=== PATIENT | male | born 1940 | race Caucasian/White ===

== ENCOUNTER 2016-12-27 06:46 | Inpatient (IN) | payer MEDICARE, BC, MEDICAID ==
[~2016-12-27] VITALS: Ht 167.6 cm; Wt 108.1 kg
[~2016-12-27 06:46] MED LIST: ADULT LOW DOSE81 MG PO; AMITRIPTYLINE100 M1 PO; AMITRIPTYLINE100 MG; CEFAZOLIN IR; CRANBERRY250 MG PO; DIAZEPAM10 MG PO; DULCOLAX 1010 MG/SUP PR; FUROSEMIDE 20MG20 MG PO; KEFLEX 500MG.500 MG PO; LASIX 20MG. TAB20 MG PO; LEADER CRANBERR1 TAB PO; LIPITOR40 M1 PO; SINGULAIR 10 MG10 MG PO; SINGULAIR10 MG PO; VALIUM 10MG TAB10 MG PO; [UNRECOGNIZED DRUG - OTHER] IL
[2016-12-27 06:55] VITALS: BP 72/39
--- NOTE | 2016-12-27 07:07 | Emergency Room Report ---
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 N Clinical Suspician of Infection? N Mental Status: 1 - Regular (Normal Baseline) Sepsis Risk:Low Sepsis Risk Have you (or family members/close friends) recently traveled outside the [place]? N If Yes, where/when: Have you had exposure to infectious disease within the past month? N TB? Other? Specify: Source patient, RN notes reviewed, family, EMS, old records Exam Limitations no limitations Comment pt with chest tightness this am and torres with no vomiting - no cough or known fever Cardiac Chest Pain Chest pain indicative of cardiac No Timing/Duration this evening Severity moderate ALLERGIES Coded Allergies: baclofen (12/18/16) carbamazepine (12/18/16) ciprofloxacin (GI UPSET 12/18/16) nitrofurantoin (From MACROBID) (12/18/16) oxybutynin (12/18/16) prazosin (12/18/16) Uncoded Allergies: BEE STINGS (SWELLING 08/05/14) BEES WAX (SWELLING 08/05/14) Home Medications Active Scripts Aspirin (Adult Low Dose Aspirin EC) 81 MG PO DAILY #30 TAB Prov: 12/13/16 Reported Medications AMITRIPTYLINE HCL (Amitriptyline Hcl) 100 MG PO QHS #30 TAB Montelukast Sodium (Singulair) 10 MG PO QAM Diazepam (Valium 10MG) 10 MG PO QID Bisacodyl (Dulcolax 10MG Supp) 10 MG [place] Q48H CRANBERRY CONC/C/BACILL COAG (Cranberry Tablet) 1 TAB PO BID Furosemide (Furosemide) 20 MG PO DAILY PRN DIURETIC #30 NEOMYCIN LUCIA/POLYMYX B SULF (Neomy-Polymyxin B 40 MG/Ml Amp) 1 ML [place] History Medical History General CAD? No Angina: No MD: No Hypertension? No Hyperlipidemia? Yes CHF? No DVT? No PE? No COPD? No Asthma? No Anemia? No GERD? No Gastric ulcers? No GI Bleed? No Hernia? No Thyroid Problems? No Hypothyroidism? No CVA? No Seizures? No Diabetes? No Renal Insuffiency? No End Stage Renal Disease? No UTI? Yes Stones? Yes BPH? No GB Disease: No Nephritic Syndrome? No Asplenia? No Hepatitis? No Arthritis? No Migraines? No Cataracts? No Glaucoma? No MRSA? No HIV? No TB? No Anxiety? No Depression? No Cancer? No Site: N More? Yes Additional hx: SPINAL CORD INJURY-QUADRAPALEGICN CHRONIC INDWELLING SIEGEL Immunization Hx DT/Tetanus > 10 Years Ago Flu Refused Pneumonia Refuses Surgical Hx Previous Surgery?Y NECK FUSION IN 1977 SHUN HIP FX'S NO SURGERY Family History Family Hx Diabetes Yes CAD No Hypertension Yes Hyperlipidemia Yes Cancer Yes TB No Social History Smoking Hx Smoker: Former Smoker Tobacco: No Type Cigarettes Packs/day N/A Alcohol Alcohol: No Drugs none Review of Systems All Other Systems Reviewed and Negative Constitutional denies fever Eyes denies drainage ENT denies: ear pain, epistaxis, throat pain. Respiratory denies cough, denies shortness of breath Cardiovascular chest pain, denies palpitations, denies syncope Gastrointestinal denies abdominal pain, denies diarrhea, denies vomiting Genitourinary denies: dysuria, frequency, hesitancy, hematuria. Musculoskeletal denies back pain, denies joint pain, denies neck pain Skin denies rash Psychiatric/Neurological denies headache, denies seizure Physical Exam Vital Signs Vital Signs Date Time Temp Pulse Resp B/P Pulse O2 O2 Flow FiO2 Ox Delivery Rate 12/27 0821 63 18 98/70 95 12/27 0756 61 18 90/58 95 12/27 0711 68 18 126/78 95 12/27 0655 95.8 68 18 72/39 95 - WBC >12,000 or <4,000 or 10% bands? 2 or more SIRS Criteria Met? B/P:98/70 MAP:50 Creatinine >2.0? UA output<0.5ml/kg/hr for 2 hrs? Platelet count >100,000? Lactate >2.0mmol/1? INR >1.2 or PTT > than 60 sec? Evidence of Organ Dysfunction? Provider documented clinical suspician of infection? N Sepsis Criteria Count: 2 Sepsis Risk: Low Sepsis Risk General Appearance no apparent distress Eye Exam - bilateral eye PERRL, bilateral eye EOMI Ear, Nose, Throat normal ENT inspection Neck non-tender Respiratory Status No: respiratory distress. Lung Sounds bilateral: decreased breath sounds. 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 No Results/Orders Laboratory Tests 12/27/16 0720: Lactic Acid 1.1 12/27/16 0720: Sodium 135 L, Potassium 3.3 L, Chloride 97 L, Carbon Dioxide 32, BUN 22 H, Creatinine 0.7 L, Estimated Creat Clear 138, Estimated GFR (MDRD) 110, Glucose 83, Calcium 8.6, Total Bilirubin 0.9, AST 14 L, ALT 42, Alkaline Phosphatase 79 , Creatine Kinase 47, CK-MB (CK-2) Rel Index 6.0 H, CK and CKMB Interp 2.8, Troponin I 0.04, Total Protein 6.1 L, Albumin 3.0 L, Globulin 3.1, Albumin/ Globulin Ratio 1.0 L, WBC 23.6 *H, RBC 4.41 L, Hgb 12.1 L, Hct 37.1 L, MCV 84.2, RDW 16.3, Plt Count 179, MPV 6.8 L, Gran % 93.0 H, Gran # 22.0 H, Total Counted 100, Lymphocytes % 2.2 L, Monocytes % 4.7, Eosinophils % 0.1, Basophils % 0.1, Neutrophils 86 H, Band Neutrophils 4, Lymphocytes (Manual) 6 L, Lymphocytes # 0.5 L, Monocytes (Manual) 3, Monocytes # 1.1 H, Eosinophils # 0.0, Eosinophils # (Manual) 1, Basophils # 0.0, Platelet Estimate NORMAL, PUBS MCHC 32.6, MCH 27.5 12/27/16 0711: Urine Color KOSTAS, Urine Appearance CLOUDY, Urine pH 6.5, Ur Specific [place] 1.010, Urine Protein 2+ H, Urine Ketones NEGATIVE, Urine Blood 3+ H, Urine Nitrate POSITIVE H, Urine Bilirubin NEGATIVE, Urine Urobilinogen 1.0, Ur Leukocyte Esterase 3+ H, Urine RBC TNTC, Urine WBC TNTC, Ur Squamous Epith Cells 3-5, Urine Renal Cells 3-5, Urine Bacteria 4+, Urine Mucus 1+, Urine Glucose NEGATIVE Current Medication Orders Sig/Jemma Start time Last Medication Dose Route Stop Time Status Admin Aspirin 324 MG ONCE ONE 12/27 0730 DC 12/27 PO 12/27 0731 0733 Aspirin 0 .STK-MED ONE 12/27 0729 DC .ROUTE Sodium Chloride 10 ML PRN PRN 12/27 0700 AC IV 12/28 0652 Sodium Chloride 1,000 ML .Q1H1M 12/27 07 DC 12/27 IV 12/27 08 0714 Sodium Chloride 10 ML PRN PRN 12/27 0700 AC IV 12/28 0654 Sodium Chloride 1,000 ML .STK-MED ONE 12/27 0654 DC IV Orders Procedure Date/time Status Decision to admit 12/27 0825 Active DIFFERENTIAL-WBC 12/27 0720 Complete OXYGEN REQUEST 12/27 0719 Active CULTURE, URINE 12/[address] SCAN REQ 12/27 0708 Complete CHEST-PORTABLE 12/27 0654 Active IV SALINE LOCK 12/27 0654 Active ELECTRICAL CONTROL ASSEMBLER 12/27 0654 Active CULTURE, BLOOD 12/27 0654 Active URINALYSIS/COMPLETE 12/27 0654 Complete LACTIC ACID 12/27 0654 Complete COMPLETE METABOLIC PANEL 12/27 0654 Complete CBC WITH AUTO DIFF 12/27 0654 Complete CARDIAC ENZYMES 12/27 0654 Complete CM/EKG CM/media director Rhythm Normal Sinus Rhythm EKG non-spec. ST/Twave chgs XRAY/CT/US XRAY/CT/US 1 XRAY chest XR interpretation by reviewed by me Xray Results abnormal (poor insp) XRAY/CT/US [address] interpretation by discussed w/radiologist Time results known: 0834 CT Results abnormal (subacute cva ) Departure Departure Time of Disposition 0835 Disposition Still a Patient Clinical Impression Primary Impression: UTI (urinary tract infection) Qualifiers: Urinary tract infection type: catheter-associated UTI Indwelling urinary catheter type: indwelling urethral catheter Encounter type: initial encounter Qualified Code: T83.511A - Infection and inflammatory reaction due to indwelling urethral catheter, initial encounter Secondary Impressions: Leukocytosis Qualifiers: Leukocytosis type: unspecified Qualified Code: D72.829 - Elevated white blood cell count, unspecified Condition STABLE Referrals Zan Galeano MD discussed with dr galeano ED Critical Care Critical Care No at [id number]
--- NOTE | 2016-12-27 07:07 | Emergency Room Report ---
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 N Clinical Suspician of Infection? N Mental Status: 1 - Regular (Normal Baseline) Sepsis Risk:Low Sepsis Risk Have you (or family members/close friends) recently traveled outside the [place]? N If Yes, where/when: Have you had exposure to infectious disease within the past month? N TB? Other? Specify: Source patient, RN notes reviewed, family, EMS, old records Exam Limitations no limitations Comment pt with chest tightness this am and torres with no vomiting - no cough or known fever Cardiac Chest Pain Chest pain indicative of cardiac No Timing/Duration this evening Severity moderate ALLERGIES Coded Allergies: baclofen (12/18/16) carbamazepine (12/18/16) ciprofloxacin (GI UPSET 12/18/16) nitrofurantoin (From MACROBID) (12/18/16) oxybutynin (12/18/16) prazosin (12/18/16) Uncoded Allergies: BEE STINGS (SWELLING 08/05/14) BEES WAX (SWELLING 08/05/14) Home Medications Active Scripts Aspirin (Adult Low Dose Aspirin EC) 81 MG PO DAILY #30 TAB Prov: 12/13/16 Reported Medications AMITRIPTYLINE HCL (Amitriptyline Hcl) 100 MG PO QHS #30 TAB Montelukast Sodium (Singulair) 10 MG PO QAM Diazepam (Valium 10MG) 10 MG PO QID Bisacodyl (Dulcolax 10MG Supp) 10 MG [place] Q48H CRANBERRY CONC/C/BACILL COAG (Cranberry Tablet) 1 TAB PO BID Furosemide (Furosemide) 20 MG PO DAILY PRN DIURETIC #30 NEOMYCIN LUCIA/POLYMYX B SULF (Neomy-Polymyxin B 40 MG/Ml Amp) 1 ML [place] History Medical History General CAD? No Angina: No VT: No Hypertension? No Hyperlipidemia? Yes CHF? No DVT? No PE? No COPD? No Asthma? No Anemia? No GERD? No Gastric ulcers? No GI Bleed? No Hernia? No Thyroid Problems? No Hypothyroidism? No CVA? No Seizures? No Diabetes? No Renal Insuffiency? No End Stage Renal Disease? No UTI? Yes Stones? Yes BPH? No GB Disease: No Nephritic Syndrome? No Asplenia? No Hepatitis? No Arthritis? No Migraines? No Cataracts? No Glaucoma? No MRSA? No HIV? No TB? No Anxiety? No Depression? No Cancer? No Site: N More? Yes Additional hx: SPINAL CORD INJURY-QUADRAPALEGICN CHRONIC INDWELLING SIEGEL Immunization Hx DT/Tetanus > 10 Years Ago Flu Refused Pneumonia Refuses Surgical Hx Previous Surgery?Y NECK FUSION IN 1977 SHUN HIP FX'S NO SURGERY Family History Family Hx Diabetes Yes CAD No Hypertension Yes Hyperlipidemia Yes Cancer Yes TB No Social History Smoking Hx Smoker: Former Smoker Tobacco: No Type Cigarettes Packs/day N/A Alcohol Alcohol: No Drugs none Review of Systems All Other Systems Reviewed and Negative Constitutional denies fever Eyes denies drainage ENT denies: ear pain, epistaxis, throat pain. Respiratory denies cough, denies shortness of breath Cardiovascular chest pain, denies palpitations, denies syncope Gastrointestinal denies abdominal pain, denies diarrhea, denies vomiting Genitourinary denies: dysuria, frequency, hesitancy, hematuria. Musculoskeletal denies back pain, denies joint pain, denies neck pain Skin denies rash Psychiatric/Neurological denies headache, denies seizure Physical Exam Vital Signs Vital Signs Date Time Temp Pulse Resp B/P Pulse O2 O2 Flow FiO2 Ox Delivery Rate 12/27 0821 63 18 98/70 95 12/27 0756 61 18 90/58 95 12/27 0711 68 18 126/78 95 12/27 0655 95.8 68 18 72/39 95 - WBC >12,000 or <4,000 or 10% bands? 2 or more SIRS Criteria Met? B/P:98/70 MAP:50 Creatinine >2.0? UA output<0.5ml/kg/hr for 2 hrs? Platelet count >100,000? Lactate >2.0mmol/1? INR >1.2 or PTT > than 60 sec? Evidence of Organ Dysfunction? Provider documented clinical suspician of infection? N Sepsis Criteria Count: 2 Sepsis Risk: Low Sepsis Risk General Appearance no apparent distress Eye Exam - bilateral eye PERRL, bilateral eye EOMI Ear, Nose, Throat normal ENT inspection Neck non-tender Respiratory Status No: respiratory distress. Lung Sounds bilateral: decreased breath sounds. Cardiovascular regular rate/rhythm, systolic murmur Peripheral Pulses Pulses normal Yes Gastrointestinal soft Extremities swelling Neurologic alert, take away man II-XII nml as tested, paraplegic with no focal changes Reflexes Reflexes normal No Mental status altered mental status Skin intact Medical Decision Making LABS/Meds/Orders Pt receiving controlled substance in ED? No Results/Orders Laboratory Tests 12/27/16 0720: Lactic Acid 1.1 12/27/16 0720: Sodium 135 L, Potassium 3.3 L, Chloride 97 L, Carbon Dioxide 32, BUN 22 H, Creatinine 0.7 L, Estimated Creat Clear 138, Estimated GFR (MDRD) 110, Glucose 83, Calcium 8.6, Total Bilirubin 0.9, AST 14 L, ALT 42, Alkaline Phosphatase 79 , Creatine Kinase 47, CK-MB (CK-2) Rel Index 6.0 H, CK and CKMB Interp 2.8, Troponin I 0.04, Total Protein 6.1 L, Albumin 3.0 L, Globulin 3.1, Albumin/ Globulin Ratio 1.0 L, WBC 23.6 *H, RBC 4.41 L, Hgb 12.1 L, Hct 37.1 L, MCV 84.2, RDW 16.3, Plt Count 179, MPV 6.8 L, Gran % 93.0 H, Gran # 22.0 H, Total Counted 100, Lymphocytes % 2.2 L, Monocytes % 4.7, Eosinophils % 0.1, Basophils % 0.1, Neutrophils 86 H, Band Neutrophils 4, Lymphocytes (Manual) 6 L, Lymphocytes # 0.5 L, Monocytes (Manual) 3, Monocytes # 1.1 H, Eosinophils # 0.0, Eosinophils # (Manual) 1, Basophils # 0.0, Platelet Estimate NORMAL, PUBS MCHC 32.6, MCH 27.5 12/27/16 0711: Urine Color KOSTAS, Urine Appearance CLOUDY, Urine pH 6.5, Ur Specific [place] 1.010, Urine Protein 2+ H, Urine Ketones NEGATIVE, Urine Blood 3+ H, Urine Nitrate POSITIVE H, Urine Bilirubin NEGATIVE, Urine Urobilinogen 1.0, Ur Leukocyte Esterase 3+ H, Urine RBC TNTC, Urine WBC TNTC, Ur Squamous Epith Cells 3-5, Urine Renal Cells 3-5, Urine Bacteria 4+, Urine Mucus 1+, Urine Glucose NEGATIVE Current Medication Orders Sig/Jemma Start time Last Medication Dose Route Stop Time Status Admin Aspirin 324 MG ONCE ONE 12/27 0730 DC 12/27 PO 12/27 0731 0733 Aspirin 0 .STK-MED ONE 12/27 0729 DC .ROUTE Sodium Chloride 10 ML PRN PRN 12/27 0700 AC IV 12/28 0652 Sodium Chloride 1,000 ML .Q1H1M 12/27 07 DC 12/27 IV 12/27 08 0714 Sodium Chloride 10 ML PRN PRN 12/27 0700 AC IV 12/28 0654 Sodium Chloride 1,000 ML .STK-MED ONE 12/27 0654 DC IV Orders Procedure Date/time Status Decision to admit 12/27 0825 Active DIFFERENTIAL-WBC 12/27 0720 Complete OXYGEN REQUEST 12/27 0719 Active CULTURE, URINE 12/[address] SCAN REQ 12/27 0708 Complete CHEST-PORTABLE 12/27 0654 Active IV SALINE LOCK 12/27 0654 Active ORE WASHER 12/27 0654 Active CULTURE, BLOOD 12/27 0654 Active URINALYSIS/COMPLETE 12/27 0654 Complete LACTIC ACID 12/27 0654 Complete COMPLETE METABOLIC PANEL 12/27 0654 Complete CBC WITH AUTO DIFF 12/27 0654 Complete CARDIAC ENZYMES 12/27 0654 Complete CM/EKG CM/scientific affairs manager Rhythm Normal Sinus Rhythm EKG non-spec. ST/Twave chgs XRAY/CT/US XRAY/CT/US 1 XRAY chest XR interpretation by reviewed by me Xray Results abnormal (poor insp) XRAY/CT/US [address] interpretation by discussed w/radiologist Time results known: 0834 CT Results abnormal (subacute cva ) Departure Departure Time of Disposition 0835 Disposition Still a Patient Clinical Impression Primary Impression: UTI (urinary tract infection) Qualifiers: Urinary tract infection type: catheter-associated UTI Indwelling urinary catheter type: indwelling urethral catheter Encounter type: initial encounter Qualified Code: T83.511A - Infection and inflammatory reaction due to indwelling urethral catheter, initial encounter Secondary Impressions: Leukocytosis Qualifiers: Leukocytosis type: unspecified Qualified Code: D72.829 - Elevated white blood cell count, unspecified Condition STABLE Referrals Zan Galeano MD discussed with dr galeano ED Critical Care Critical Care No at [phone]
[2016-12-27 07:19] LABS: URINE BLOOD 3+ (NEG)
[2016-12-27 07:25] LABS: URINE BILIRUBIN - DIPSTICK NEGATIVE (NEG)
[2016-12-27 07:29] LABS: HEMOGLOBIN 12.1 g/dL (14.1-18.0); LYMPH # 0.5 K/mm3 (0.7-4.5); LYMPH % 2.2 % (10-50)
[2016-12-27 07:48] LABS: NEUTROPHILS 86 % (42-76)
--- NOTE | 2016-12-27 08:25 | RADIOLOGY REPORT PS360 ---
CT HEAD W/O CONTRAST COMPARISON: CT scan of brain noncontrast 12/12/2016 HISTORY: Headache, patient is paraplegic TECHNIQUE: Axial scans obtained from base skull to the vertex and were performed without IV contrast. Sagittal and coronal reformats were evaluated as well. FINDINGS: Base of skull appears normal. The mastoids are clear. Again noted is the low density lesion right basal ganglia likely putamen now more isodense with CSF indicating evolution of suspected ischemic infarct. The ventricular system is normal. The basilar cisterns are mildly prominent. Again noted are mild chronic ischemic white matter changes. There is no bleed and there are no extra-axial fluid collections. 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
--- NOTE | 2016-12-27 10:31 | RADIOLOGY REPORT PS360 ---
CHEST-PORTABLE COMPARISON: Portable semiupright chest 12/18/2016 HISTORY: Chest tightness TECHNIQUE: Portable upright chest FINDINGS: The patient rotated to the left somewhat. Again there is mild mediastinal widening but I feel this is due to accommodation rotation of the patient an aortic tortuosity. Again there are somewhat poor evaluation of the left lung base probably due to underpenetration and the fact that there is slight elevation left hemidiaphragm. Cardiac size is borderline. There is less vascular congestion than on the earlier film. IMPRESSION: Interval improvement in the cardiovascular status with resolution of mild failure, mild cardio megaly is doing difficult to exclude pneumonia versus scarring versus small amount of pleural fluid the left base due to underpenetration and rotation of the patient. Would be help to have a standard upright PA and lateral chest of the patient can assume position for better evaluation
[2016-12-27 14:00] VITALS: BP 103/68
[2016-12-27 14:20] VITALS: BP 117/72
--- NOTE | 2016-12-27 16:11 | PHARMACY CLINIC NOTE ---
Patient Demographics Patient Demographics Admission date: 12/27/16 Date: 12/27/16 Time: 1610 Allergies Coded Allergies: bee venom protein (honey bee) (Intermediate, SWELLING 12/27/16) baclofen (12/18/16) carbamazepine (12/18/16) ciprofloxacin (GI UPSET 12/18/16) nitrofurantoin (From MACROBID) (12/18/16) oxybutynin (12/18/16) prazosin (12/18/16) Uncoded Allergies: BEES WAX (SWELLING 08/05/14) HEIGHT- FT: 5 IN: 6.00 K.142 VTE General Information Labs: Laboratory Tests 12/27 0720 Hematology Hgb (14.1 - 18.0 g/dL) 12.1 L Hct (42.0 - 52.0 %) 37.1 L Plt Count (142 - 424 K/mm3) 179 Disclaimer The following section includes nursing documentation that has been pulled in for pharmacy review. Patient's VTE score: 2 Patient's VTE Risk: VERY LOW RISK Clinical trial participant? No VTE prophylaxis [id number] VTE prophylaxis ordered? Yes Type of prophylaxis/treatment: RAQUEL at 1610
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
--- NOTE | 2016-12-27 18:37 | ACUTE CARE PROGRESS NOTE (QUA) ---
Progress Notes Subjective Date 12/27/16 Time 1834 Note Patient admitted earlier today after presenting with recurrent bouts of hematuria. Patient was discovered to have a urinary tract infection with a white blood cell count 23,000. Lactic acid was normal. Patient is paraplegic from previous spinal cord injury. Patient was admitted and started on Levaquin due to abnormal urine culture from December 12 growing stenotrophomonas. Patient is awake and alert. He does not appear to be in any distress. Lungs are clear to auscultation. Heart has a regular rate and rhythm. Abdomen is soft. Hernández catheter is in place and is draining bloody urine. Patient has 2-3+ edema of the lower extremities. 1. IV Levaquin 2. IV Lasix 3. Urology consult 4 monitor I's and O's Objective Findings Last VS-Temp:97.9 B/P:117/72 Pulse:68 Resp:20 SaO2:97 OXYGEN Last weight lbs:234 oz:0 K.142 Method:Bed Scales Reviewed: medications, vital signs, lab results Assessment/Plan Problem List 1. Hematuria 2. Neurogenic bladder 3. UTI (urinary tract infection) Qualifiers: Urinary tract infection type: catheter-associated UTI Indwelling urinary catheter type: indwelling urethral catheter Encounter type: initial encounter Qualified Code: T83.511A - Infection and inflammatory reaction due to indwelling urethral catheter, initial encounter 4. Obstructed Hernández catheter 5. Leukocytosis Qualifiers: Leukocytosis type: unspecified Qualified Code: D72.829 - Elevated white blood cell count, unspecified 6. Quadriplegia following spinal cord injury Patient condition Guarded This inpt stay is expected to cross 2 MNs from start of care Yes
[2016-12-27 19:31] VITALS: BP 135/88
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
[2016-12-28 03:46] VITALS: BP 160/88
[2016-12-28 06:51] LABS: LYMPH # 0.7 K/mm3 (0.7-4.5); LYMPH % 3.2 % (10-50)
--- NOTE | 2016-12-28 07:20 | ACUTE CARE PROGRESS NOTE (QUA) ---
Progress Notes Subjective Date 12/28/16 Time 0717 Note No events overnight. Headache resolved. Continues to have some intermittent chest tightness. Tmax 99.6 Awake and alert, oriented. at BS. Heart rhythm regular, anterior lung luz clear. Abd soft, ND, BS present. Edema improving with 2+ bilat and soft. Catheter with bloody urine output. Patient/family reports: feeling better Nursing reports: no complaints Objective Findings Last VS-Temp:99.4 B/P:160/88 Pulse:68 Resp:20 SaO2:97 OXYGEN Last weight lbs:234 oz:0 K.142 Method:Bed Scales Reviewed: medications, vital signs, lab results, radiology report Assessment/Plan Problem List 1. Hematuria 2. Neurogenic bladder 3. UTI (urinary tract infection) Qualifiers: Urinary tract infection type: catheter-associated UTI Indwelling urinary catheter type: indwelling urethral catheter Encounter type: initial encounter Qualified Code: T83.511A - Infection and inflammatory reaction due to indwelling urethral catheter, initial encounter 4. Obstructed Hernández catheter 5. Leukocytosis Qualifiers: Leukocytosis type: unspecified Qualified Code: D72.829 - Elevated white blood cell count, unspecified 6. Quadriplegia following spinal cord injury 7. CVA (cerebral vascular accident) 8. Peripheral edema 9. Chest pain Assessment/Plan: echo 12/12/16 unremarkable, enzymes negative at admission. DDimer today and consider dopplers/CT chest if elevated Patient condition Stable Plan: continue current care, order additional tests This inpt stay is expected to cross 2 MNs from start of care Yes at 0720
[2016-12-28] MEDS ORDERED: AMITRIPTYLINE100 M2 PO (07:26)
[2016-12-28] MEDS ORDERED: LIPITOR40 MG PO (07:27)
[2016-12-28 08:04] VITALS: BP 160/88
[2016-12-28 08:30] VITALS: BP 105/52
[2016-12-28 16:00] VITALS: BP 138/80
--- NOTE | 2016-12-28 16:02 | CARDIOVASCULAR REPORT ---
"Venous Exam Indications: 782.3 Edema. Elevated D-dimer. Patient is a paraplegic. Limited study. Complete lower extremity venous duplex evaluation. Doppler flow study including spectral analysis, color and saenz scale imaging. Location: Bedside. Patient status: Inpatient. Tables: Venous flow and imaging: + + + + |Location |Overall |Flow properties | + + + + |Right common femoral |Patent |Normal phasicity; | | | |spontaneous; normal | | | |augmentation; compressible | + + + + |Right saphenofemoral |Patent |Compressible | |junction | | | + + + + |Right profunda femoral |Patent |Compressible | + + + + |Right femoral |Patent |Normal phasicity; | | | |spontaneous; normal | | | |augmentation; compressible;| | | |no reflux | + + + + |Right greater saphenous |Patent |Normal phasicity; | | | |spontaneous; normal | | | |augmentation; compressible | + + + + |Right popliteal |Difficult | | | |study | | + + + + |Right posterior tibial |Patent |Compressible | + + + + |Right peroneal |Patent |Compressible | + + + + |Right gastrocnemius |Difficult | | | |study | | + + + + |Right soleal |Difficult | | | |study | | + + + + |Left common femoral |Patent |Normal phasicity; | | | |spontaneous; normal | | | |augmentation; compressible | + + + + |Left saphenofemoral junction|Patent |Compressible | + + + + |Left profunda femoral |Patent |Compressible | + + + + |Left femoral |Patent |Normal phasicity; | | | |spontaneous; normal | | | |augmentation; compressible | + + + + |Left greater saphenous |Patent |Normal phasicity; | | | |spontaneous; normal | | | |augmentation; compressible | + + + + |Left popliteal |Patent |Normal phasicity; | | | |spontaneous; normal | | | |augmentation; compressible | + + + + |Left posterior tibial |Patent |Compressible | + + + + |Left peroneal |Patent |Compressible | + + + + |Left gastrocnemius |Difficult | | | |study | | + + + + |Left soleal |Difficult | | | |study | | + + + + (Report amended ) Electronically signed by: Ramu Velásquez [id number]"
--- NOTE | 2016-12-28 17:17 | RADIOLOGY REPORT PS360 ---
CTA-CHEST Ordering Physician: Zan Larson MD Patient Age: 76 years: Male HISTORY: ELEVATED D DIMER, CONGESTION, CHEST TIGHTNESS TECHNIQUE: COMPARISON is made to previous CT abdomen studies most recent December 2015, and previous chest FINDINGS No pulmonary embolism. Considering the patient's large size with further compromised resolution due to arms at his side yielding streak artifact, today's images of the pulmonary arteries are surprisingly good quality and reveal no intraluminal thrombus. Aorta normal in caliber. Mediastinal lipomatosis-generous fat throughout mediastinum yields a generous width of the superior mediastinum but no pathologic or adenopathy here. No hilar adenopathy. Mild Cardiomegaly with no pericardial effusion Uppermost abdomen. Adrenals appear normal. Fatty changes liver. Spleen normal size. Small gallstone within towards neck Partially imaged gallbladder Lung luz. Patchy areas of consolidation/Patchy infiltrates of moderate density seen throughout the deep dependent lung luz bilaterally mainly involving the lower lobes.. Some associated atelectasis but I believe primarily infiltrate. Right lung. Patchy airspace disease & infiltrate RUL & RLL. Left lung: patchy moderately dense infiltrate/consolidation most evident at the superior segment LLL Minimal infiltrate posterior left upper lobe. linear atelectasis becomes most pronounced at the left lung base. Osseous. We again see the prominent reactive endplate changes involving lower thoracic vertebra about the narrowed degenerated T10-T11 disc space. Also T 7/8 with disc space narrowing and exuberant anterior marginal osteophyte extending into the subcarinal region and actually compressing the posterior aspect of the left atrium, axial image 53 . Also prominent intramarginal osteophytes throughout the upper T-spine, with degenerative disc changes. Dextroscoliosis upper T-spine ----- IMPRESSION: --------- 1. No evidence of pulmonary embolism. (Pulmonary arteries surprisingly well visualized considering) 2. Bilateral pneumonia -with findings slightly more evident throughout posterior right lung Patchy infiltrate & areas consolidation throughout RUL & RLL; Focal consolidation superior segment LLL and minimal infiltrate posterior L UL 3. Other nonacute observations: Prominent degenerative changes throughout T-spine again noted. Specifically note very Large anterior marginal osteophyte at T7/8 level which extends nearly 3 cm AP, & slightly indenting the posterior aspect of left atria . Tiny gallstone incidentally noted/suspect
[2016-12-28 20:38] VITALS: BP 98/63
[2016-12-28 20:40] VITALS: BP 98/63
[2016-12-29] VITALS (7 sets, daily range): BP systolic 101–121; BP diastolic 57–84
[2016-12-29 06:51] LABS: LYMPH % 6.8 % (10-50)
--- NOTE | 2016-12-29 07:28 | ACUTE CARE PROGRESS NOTE (QUA) ---
Progress Notes Subjective Date 12/29/16 Time 0723 Note No events overnight. Has some chest discomfort and lower extremity discomfort this morning. CTA chest revealed bilat pneumonias, no emboli. No fevers overnight. Urine culture still pending Pleasant male, alert and oriented. Heart with RRR, lungs diminished but clear anterior luz. Abdomen obese, soft, NT/ND, BS present. Edema much improved with trace on the right and 1+ in the left foot. Patient/family reports: feeling better Nursing reports: no complaints Objective Findings Last VS-Temp:97.0 B/P:106/84 Pulse:51 Resp:18 SaO2:97 OXYGEN Last weight lbs:234 oz:0 K.142 Method:Bed Scales Reviewed: medications, vital signs, lab results Assessment/Plan Problem List 1. Hematuria 2. Neurogenic bladder 3. UTI (urinary tract infection) Assessment/Plan: Cultures still pending. Continue Levaquin IV for both UTI and Pneumonia and FU on cultures when available. WBC significantly decreased today Qualifiers: Urinary tract infection type: catheter-associated UTI Indwelling urinary catheter type: indwelling urethral catheter Encounter type: initial encounter Qualified Code: T83.511A - Infection and inflammatory reaction due to indwelling urethral catheter, initial encounter 4. Obstructed Hernández catheter 5. Leukocytosis Qualifiers: Leukocytosis type: unspecified Qualified Code: D72.829 - Elevated white blood cell count, unspecified 6. Quadriplegia following spinal cord injury 7. CVA (cerebral vascular accident) 8. Peripheral edema 9. Chest pain 10. Bilateral pneumonia Patient condition Improving, Stable Plan: continue current care This inpt stay is expected to cross 2 MNs from start of care Yes at 0751
[2016-12-29 08:07] LABS: NEUTROPHILS 85 % (42-76)
[2016-12-29 08:33] LABS: HEMOGLOBIN 10.8 g/dL (14.1-18.0)
[2016-12-30] VITALS (27 sets, daily range): BP systolic 98–168; BP diastolic 51–678
[2016-12-30 07:18] LABS: LYMPH % 7.4 % (10-50)
[2016-12-30 07:24] LABS: HEMOGLOBIN 11.9 g/dL (14.1-18.0)
--- NOTE | 2016-12-30 07:32 | ACUTE CARE PROGRESS NOTE (QUA) ---
Progress Notes Subjective Date 12/30/16 Time 07 Note Temperatures low overnight. Urine culture with psuedomonas. He was able to obtain a sputum culture. Denies pain this morning, feels a little uncomfortable from lying in bed. Exam unchanged. Alert and oriented x 3. Heart with RRR, lungs coarse but clear anterior with faint rales laterally. Abdomen obese, soft, NT/ND, BS present. Trace bilat lower extremity edema. Patient/family reports: feeling better, no complaints Nursing reports: temperature low Objective Findings Last VS-Temp:94.1 B/P:98/63 Pulse:53 Resp:20 SaO2:92 OXYGEN Last weight lbs:234 oz:0 K.142 Method:Bed Scales Reviewed: medications, vital signs, lab results Assessment/Plan Problem List 1. Hematuria 2. Neurogenic bladder 3. UTI (urinary tract infection) Assessment/Plan: On levaquin, add cefepime for better psuedomonas coverage. Anticipate swing bed admission vs. short-term rehabiliation facility when stable Qualifiers: Urinary tract infection type: catheter-associated UTI Indwelling urinary catheter type: indwelling urethral catheter Encounter type: initial encounter Qualified Code: T83.511A - Infection and inflammatory reaction due to indwelling urethral catheter, initial encounter 4. Obstructed Hernández catheter 5. Leukocytosis Assessment/Plan: improving Qualifiers: Leukocytosis type: unspecified Qualified Code: D72.829 - Elevated white blood cell count, unspecified 6. Quadriplegia following spinal cord injury 7. CVA (cerebral vascular accident) 8. Peripheral edema 9. Chest pain 10. Bilateral pneumonia Assessment/Plan: FU CXR today, was able to obtain sputum culture, cefepime added to levaquin. Continue trend WBC 11. Hypothermia Assessment/Plan: additional antibiotic coverage added today, warming blanket Patient condition Stable, Guarded Plan: make medication changes, order additional tests This inpt stay is expected to cross 2 MNs from start of care Yes Antibiotic Stewardship (2) Current Culture Results Microbiology 12/30 0000 SPUTUM: Sputum Culture - RES 12/30 0000 SPUTUM: Gram Stain - RES 12/27 710 URINE CC: Urine Culture - COMP PSEUDOMONAS AERUGINOSA 12/27 699 BLOOD: Anaerobic Blood Culture - RES 12/27 699 BLOOD: Aerobic Blood Culture - RES Infxn that will respond? Yes Right drug,dose,and route? Yes More targeted antbx? No How long atbx needed? 14 at 9921
[2016-12-30 07:49] LABS: NEUTROPHILS 82 % (42-76)
--- NOTE | 2016-12-30 10:41 | RADIOLOGY REPORT PS360 ---
CHEST-PORTABLE Ordering Physician: Zan Larson MD Patient Age: 76 years: Male HISTORY: PNEUMONIA PROGRESS TECHNIQUE: FINDINGS Rotated limited portable supine chest.. Left CP angle not included Left lung Airspace disease in infiltrate with air bronchograms most evident at the at the medial left base, left infrahilar region. Signs of reflecting left lower lobe pneumonia. Similar if not slightly more pronounced than 12/27/2016 CXR. The The left CP angle was not included on this study. Left upper lung luz are clear. Hazy diffuse infiltrate is seen throughout the right midlung and towards right lung base are reflecting airspace disease and probable pneumonia. Although there seems to be progression of the perihilar infiltrate since for 12/27/16 CXR, I believe the findings are fairly consistent with the CT chest from December 28 There may be element of vascular congestion CHF as well, contributing to overall appearance Cardiomegaly. ------IMPRESSION: Bilateral pneumonia; Lt > Rt . Pneumonia most pronounced at the medial left base . Findings similar to perhaps slightly more pronounced than recent chest studies .. Hazy infiltrate right perihilar region towards right base. (Findings on right similar 12/28/2016 CT chest, but have progressed since 12/27/2016 CXR ) Cardiomegaly with suspect mild CHF suggested on this a supine study
[2016-12-31] VITALS (7 sets, daily range): BP systolic 112–151; BP diastolic 68–96
[2016-12-31 09:51] LABS: HEMOGLOBIN 11.8 g/dL (14.1-18.0); LYMPH # 0.7 K/mm3 (0.7-4.5); LYMPH % 11.8 % (10-50)
--- NOTE | 2016-12-31 10:03 | ACUTE CARE PROGRESS NOTE (QUA) ---
Progress Notes Subjective Date 12/31/16 Time 0900 Note at BS and reports more cough, congestion and some confusion overnight. He was able to eat breakfast for her this morning but generally doesn't seem himself. Temperatures better overnight and warm blanket has been removed as over this morning. Sleeping, wakes to voice but seems somnolent. Heart with RRR, rhonchi bilateral anterior lung luz and still with some faint rales in the lateral luz. Abdomen soft, BS present and normal. Trace bilat lower extremity edema. Urine in catheter is still bloody but there is some ultrasound technol urine in the tubing. Patient/family reports: feeling worse, cough Nursing reports: no complaints Objective Findings Last VS-Temp:97.7 B/P:135/92 Pulse:60 Resp:20 SaO2:97 OXYGEN Last weight lbs:234 oz:0 K.142 Method:Bed Scales Reviewed: medications, vital signs Assessment/Plan Problem List 1. Hematuria 2. Neurogenic bladder 3. UTI (urinary tract infection) Assessment/Plan Double coverage added yesterday, continue cefepime and Levaquin and wait for sputum culture. 4. Obstructed Hernández catheter 5. Leukocytosis 6. Quadriplegia following spinal cord injury 7. CVA (cerebral vascular accident) 8. Peripheral edema 9. Chest pain 10. Bilateral pneumonia 11. Hypothermia Patient condition Stable, Guarded Plan: continue current care, order additional tests This inpt stay is expected to cross 2 MNs from start of care Yes Antibiotic Stewardship (2) Infxn that will respond? Yes Right drug,dose,and route? Yes More targeted antbx? No at 1000
[2017-01-01] VITALS (9 sets, daily range): BP systolic 94–121; BP diastolic 52–86
[2017-01-01 07:05] LABS: HEMOGLOBIN 10.9 g/dL (14.1-18.0); LYMPH # 1.1 K/mm3 (0.7-4.5); LYMPH % 15.5 % (10-50)
--- NOTE | 2017-01-01 08:02 | ACUTE CARE PROGRESS NOTE (QUA) ---
Progress Notes Subjective Date 01/01/17 Time 0756 Note Patient complains of recurrent episodes of chest heaviness. This is not the first time during hospitalization patient has mentioned chest discomfort. In addition to this his feels like his hands are now swollen in addition to his legs. Patient appears comfortable in bed. He does not appear dyspneic nor in any distress. He is able to answer questions. Lungs are clear anteriorly and in the upper lobes posteriorly. At the bases breath sounds are diminished. Heart has a regular rate and rhythm. Patient has trace edema of the hands as well as 1+ edema of the lower extremities. Electrocardiogram does not show any acute ischemia or infarct. Objective Findings Laboratory Tests 01/01/17 0600: Troponin I 0.16 H, B-Natriuretic Peptide 323 H 01/01/17 0554: Sodium 134 L, Potassium 4.8, Chloride 100, Carbon Dioxide 32, BUN 25 H, Creatinine 0.6 L, Estimated Creat Clear 165, Estimated GFR (MDRD) 132, Glucose 81, Calcium 8.6, WBC 7.3, RBC 3.95 L, Hgb 10.9 L, Hct 34.3 L, MCV 87.0, RDW 16.4, Plt Count 135 L, MPV 7.2 L, Gran % 75.0, Gran # 5.5, Lymphocytes % 15.5, Monocytes % 6.6, Eosinophils % 2.8, Basophils % 0.1, Lymphocytes # 1.1, Monocytes # 0.5, Eosinophils # 0.2, Basophils # 0.0, PUBS MCHC 31.7 L, MCH 27.6 12/31/16 0940: Sodium 133 L, Potassium 4.4, Chloride 100, Carbon Dioxide 33 H, BUN 24 H, Creatinine 0.6 L, Estimated Creat Clear 162, Estimated GFR (MDRD) 132, Glucose 123 H, Calcium 8.4 L, WBC 6.1, RBC 4.34 L, Hgb 11.8 L, Hct 37.6 L, MCV 86.8 , RDW 16.4, Plt Count 118 L, MPV 7.6, Gran % 81.4 H, Gran # 4.9, Lymphocytes % 11.8, Monocytes % 4.2, Eosinophils % 2.4, Basophils % 0.1, Lymphocytes # 0.7, Monocytes # 0.3, Eosinophils # 0.1, Basophils # 0.0, PUBS MCHC 31.3 L, MCH 27.1 Last VS-Temp:95.8 B/P:121/60 Pulse:59 Resp:18 SaO2:91 OXYGEN Last weight lbs:238 oz:6 K.125 Method:Bed Scales Assessment/Plan Problem List 1. Hematuria 2. Neurogenic bladder 3. UTI (urinary tract infection) Qualifiers: Urinary tract infection type: catheter-associated UTI Indwelling urinary catheter type: indwelling urethral catheter Encounter type: initial encounter Qualified Code: T83.511A - Infection and inflammatory reaction due to indwelling urethral catheter, initial encounter 4. Obstructed Hernández catheter 5. Leukocytosis Qualifiers: Leukocytosis type: unspecified Qualified Code: D72.829 - Elevated white blood cell count, unspecified 6. Quadriplegia following spinal cord injury 7. CVA (cerebral vascular accident) 8. Peripheral edema 9. Chest pain 10. Bilateral pneumonia 11. Hypothermia Patient condition Guarded Plan: continue current care, make medication changes This inpt stay is expected to cross 2 MNs from start of care Yes Comments: Troponin has risen. Patient will be placed on Nitropaste as long as his blood pressure allows. Start Lovenox but monitor for hematuria as this is been a recurring issue with the patient. Echocardiogram in a.m. increase Lasix to 40 mg. Antibiotic Stewardship (2) Infxn that will respond? Yes Right drug,dose,and route? Yes More targeted antbx? No at 0801
[2017-01-02 04:25] VITALS: BP 95/56
--- NOTE | 2017-01-02 07:47 | ACUTE CARE PROGRESS NOTE (QUA) ---
Progress Notes Subjective Date 01/02/17 Time 0745 Note Overall patient continues to feel somewhat poorly, his complaints today are mainly centered in his right hip and right lower quadrant of his abdomen but he is unable to really localize pain very well. He reports this chest heaviness "comes and goes." Heart rate regular, lungs have scattered rhonchi but good air movement. Abdomen is soft and nontender. Pressing on his lateral hip/trochanter produces no pain but difficult examination because of his paraplegia. Objective Findings Last VS-Temp:98.1 B/P:95/56 Pulse:54 Resp:20 SaO2:97 OXYGEN Last weight lbs:238 oz:6 K.125 Method:Bed Scales Assessment/Plan Problem List 1. Hematuria 2. Neurogenic bladder 3. UTI (urinary tract infection) Qualifiers: Urinary tract infection type: catheter-associated UTI Indwelling urinary catheter type: indwelling urethral catheter Encounter type: initial encounter Qualified Code: T83.511A - Infection and inflammatory reaction due to indwelling urethral catheter, initial encounter 4. Obstructed Hernández catheter 5. Leukocytosis Qualifiers: Leukocytosis type: unspecified Qualified Code: D72.829 - Elevated white blood cell count, unspecified 6. Quadriplegia following spinal cord injury 7. CVA (cerebral vascular accident) 8. Peripheral edema 9. Chest pain 10. Bilateral pneumonia 11. Hypothermia Patient condition Stable, Pseudomonas urinary tract infection is currently being adequately treated. Sputum cultures are pending. Patient's pneumonia overall seems better. Chest heaviness with borderline troponin-cardiology consultation- echocardiogram today. Right hip and abdominal pain. Check flat plate of abdomen and right hip x-ray today. This inpt stay is expected to cross 2 MNs from start of care Yes Antibiotic Stewardship (2) Infxn that will respond? Yes Right drug,dose,and route? Yes More targeted antbx? No at 0746
[2017-01-02 07:49] VITALS: BP 138/92
[2017-01-02 08:16] VITALS: BP 138/92
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
[2017-01-02 16:00] VITALS: BP 146/84
--- NOTE | 2017-01-02 16:41 | RADIOLOGY REPORT PS360 ---
HIP RT 2-3V W/PELVIS IF PERFOR HISTORY: pain in right hip ORDERING PHYSICIAN: Zan Roman MD PATIENT AGE: 76 years COMPARISON: CT scan of 08/10/2016 FINDINGS: There is a chronic ununited fracture of the right intertrochanteric/subtrochanteric region with osteophytes at the ununited site. Prominent soft tissue calcification is also noted. These findings were similar on the previous production maintenance mechanic exam of the CT scan of 08/10/2016. Prominent osteophytes are present about the acetabulum with osteoarthritic change of the right hip. Similarly, there is an old ununited left intertrochanteric/subtrochanteric hip fracture with osteoarthritic changes of the left hip. 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 No acute finding evident.
--- NOTE | 2017-01-02 16:41 | RADIOLOGY REPORT PS360 ---
HIP RT 2-3V W/PELVIS IF PERFOR HISTORY: pain in right hip ORDERING PHYSICIAN: Zan Roman MD PATIENT AGE: 76 years COMPARISON: CT scan of 08/10/2016 FINDINGS: There is a chronic ununited fracture of the right intertrochanteric/subtrochanteric region with osteophytes at the ununited site. Prominent soft tissue calcification is also noted. These findings were similar on the previous payroll tax specialist exam of the CT scan of 08/10/2016. Prominent osteophytes are present about the acetabulum with osteoarthritic change of the right hip. Similarly, there is an old ununited left intertrochanteric/subtrochanteric hip fracture with osteoarthritic changes of the left hip. 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 No acute finding evident.
--- NOTE | 2017-01-02 16:43 | RADIOLOGY REPORT PS360 ---
KUB (SINGLE VIEW) HISTORY: Pain pain in right hip ORDERING PHYSICIAN: Zan Roman MD PATIENT AGE: 76 years COMPARISON: CT scan of 08/10/2016 FINDINGS: There is a nonspecific nonobstructed bowel gas pattern. Gas-filled loops of small and large bowel are present. No definite intestinal obstruction. There is blunting of the left CP angle nonspecific. Degenerative changes with osteophytes are present in the lumbar spine. Hernández catheter is present IMPRESSION: Nonspecific nonobstructive bowel gas pattern. , No acute finding
[2017-01-02 19:56] VITALS: BP 120/87
[2017-01-02 23:56] VITALS: BP 103/61
[2017-01-03] VITALS (8 sets, daily range): BP systolic 105–126; BP diastolic 57–77
[2017-01-03 06:53] LABS: LYMPH # 1.5 K/mm3 (0.7-4.5); LYMPH % 14.1 % (10-50)
--- NOTE | 2017-01-03 07:32 | ACUTE CARE PROGRESS NOTE (QUA) ---
Progress Notes Subjective Date 01/03/17 Time 0731 Note Patient had a brisk diuresis with 20 mg of IV Lasix of 1.8 L. He looks like he feels much better, had a rough night last night with some issues with the bed mechanism and some shortness of air, cardiac enzymes were normal an EKG showed no changes over baseline. Lungs are clear in anterior luz, heart rate remains regular. Abdomen soft, much less edema today. Objective Findings Last VS-Temp:95.3 B/P:106/57 Pulse:62 Resp:20 SaO2:97 OXYGEN Last weight lbs:238 oz:6 K.125 Method:Bed Scales Assessment/Plan Problem List 1. Hematuria 2. Neurogenic bladder 3. UTI (urinary tract infection) Qualifiers: Urinary tract infection type: catheter-associated UTI Indwelling urinary catheter type: indwelling urethral catheter Encounter type: initial encounter Qualified Code: T83.511A - Infection and inflammatory reaction due to indwelling urethral catheter, initial encounter 4. Obstructed Hernández catheter 5. Leukocytosis Qualifiers: Leukocytosis type: unspecified Qualified Code: D72.829 - Elevated white blood cell count, unspecified 6. Quadriplegia following spinal cord injury 7. CVA (cerebral vascular accident) 8. Peripheral edema 9. Chest pain 10. Bilateral pneumonia 11. Hypothermia Patient condition Improving Plan: continue current care, 20 mg Lasix again today. Check labs tomorrow, consider correction transfer with urology followup as an outpatient. This inpt stay is expected to cross 2 MNs from start of care Yes Antibiotic Stewardship (2) Infxn that will respond? Yes Right drug,dose,and route? Yes More targeted antbx? No at 0789
[2017-01-03 07:40] LABS: HEMOGLOBIN 10.4 g/dL (14.1-18.0)
--- NOTE | 2017-01-03 09:41 | RADIOLOGY REPORT PS360 ---
PROCEDURE: 2-D M-mode and color Doppler study. Definity contrast was also utilized. INDICATIONS FOR THE TEST: Chest pain + COPD Heart Murmur Tobacco Smoking Palpitations Fatigue Syncope Edema+ Hypertension Diabetes Mellitus Rheumatic Fever SOB CARVAJAL Obesity+Hyperlipidemia Family History HD Additional History QUADRIPLEGIC, CVA, PATIENT INFORMATION HEIGHT: 66 WEIGHT:238 GENDER: Male B/P:121/60 2-D/M-MODE INTERPRETATION: 2-D MEASUREMENTS OBSERVED VALUES IN CMS Right Ventricular Dimension (RVDd) 2.5 Interventricular Septum (Thickness)(IVsd) 0.8 Left Ventricular Internal Dimensions(LVIDd) 3.9 Left Ventricular Posterior Wall (Thickness)(LVPWd) 1.6 Aortic Root 3.1 Aortic Cusp Separation 2.3 Left Atrial Dimensions (LAD) 3.1 2D 1. Technically difficult and limited study performed. Definity contrast was utilized to delineate endocardial surfaces. 2. The left atrium is mildly enlarged, left ventricle is normal size, there is moderate concentric left ventricular hypertrophy, visually estimated ejection fraction of 55% with no obvious regional wall motion abnormality. 3. The right atrium is mildly enlarged, the right ventricle is mildly dilated with mild reduced contractility. 4. The aortic valve is minimally thickened and calcified. 5. The mitral valve leaflets are minimally thickened. 6. The tricuspid and pulmonic valve is not well visualized. 7. There is small circumferential pericardial effusion noted. DOPPLER INTERROGATION: Doppler interrogation of the aortic mitral and tricuspid valve is suboptimal. CONCLUSION: 1. Normal left ventricular size, moderate concentric left ventricular hypertrophy, visually estimated ejection fraction 55% with no obvious regional wall motion abnormality. 2. Small circumferential pericardial effusion noted.
--- NOTE | 2017-01-03 16:14 | ACUTE CARE PROGRESS NOTE (QUA) ---
Progress Notes Subjective Date 01/03/17 Time 1602 Note 76 yo WM in bed in NAD. Family relates episode of patient not feeling well last evening to the point of telling everyone goodbye. Diffuse sweating noted with some chest pain and SOA. CArdiac enzymes obtained and were normal. EKG unremarkable. Pt diuresed 1.8 liters overnight. Objective Findings Last VS-Temp:93.4 B/P:126/71 Pulse:66 Resp:18 SaO2:98 OXYGEN Last weight lbs:238 oz:6 K.125 Method:Bed Scales Exam General appearance: awake, no acute distress Cardiovascular: regular rate & rhythm Respiratory: diminished breath sounds Extremities: edema improving. Neuro: alert Reviewed: medications, vital signs, lab results Assessment/Plan Problem List 1. Hematuria 2. Neurogenic bladder 3. UTI (urinary tract infection) Qualifiers: Urinary tract infection type: catheter-associated UTI Indwelling urinary catheter type: indwelling urethral catheter Encounter type: initial encounter Qualified Code: T83.511A - Infection and inflammatory reaction due to indwelling urethral catheter, initial encounter 4. Obstructed Hernández catheter 5. Leukocytosis Qualifiers: Leukocytosis type: unspecified Qualified Code: D72.829 - Elevated white blood cell count, unspecified 6. Quadriplegia following spinal cord injury 7. CVA (cerebral vascular accident) 8. Peripheral edema 9. Chest pain 10. Bilateral pneumonia 11. Hypothermia Patient condition Stable Plan: Add low dose coreg. Continue nitropaste. Lasix repeated today. This inpt stay is expected to cross 2 MNs from start of care Yes Antibiotic Stewardship (2) Infxn that will respond? Yes Right drug,dose,and route? Yes More targeted antbx? No at [id number]
[2017-01-04] VITALS (8 sets, daily range): BP systolic 105–183; BP diastolic 68–97
--- NOTE | 2017-01-04 07:48 | ACUTE CARE PROGRESS NOTE (QUA) ---
Progress Notes Subjective Date 01/04/17 Time 0743 Note Patient has had some symptoms overnight of breathlessness and chest pain and a feeling of impending doom. Labs and EKGs were unchanged through the night. This morning the patient feels a little better. Hemodynamic parameters have normalized, with good diuresis of another liter with IV Lasix and no change in his physical exam including regular heart rate, some anterior lung rhonchi. Unfortunately, his is extremely, extremely worried about his ongoing care and thinks that any transfer to half-way would be "a sentence" and that the patient is "critically unstable" and she refuses to even consider transfer to a skilled facility at this point. I had a very, very long conversation with her in the presence of her daughter and our pharmacy and care management and nursing staff rounding team regarding her concerns. I'm not sure at this point I can allay her concerns as she cannot pinpoint physical symptoms but simply states that "I've taken care of him for 39 years and this is very different." She seems to indicate that I am not addressing his situation "from a human perspective, but only what you learned in med school." Objective Findings Last VS-Temp:96.2 B/P:105/68 Pulse:49 Resp:18 SaO2:92 OXYGEN Last weight lbs:238 oz:6 K.125 Method:Bed Scales Assessment/Plan Problem List 1. Hematuria 2. Neurogenic bladder 3. UTI (urinary tract infection) Qualifiers: Urinary tract infection type: catheter-associated UTI Indwelling urinary catheter type: indwelling urethral catheter Encounter type: initial encounter Qualified Code: T83.511A - Infection and inflammatory reaction due to indwelling urethral catheter, initial encounter 4. Obstructed Hernández catheter 5. Leukocytosis Qualifiers: Leukocytosis type: unspecified Qualified Code: D72.829 - Elevated white blood cell count, unspecified 6. Quadriplegia following spinal cord injury 7. CVA (cerebral vascular accident) 8. Peripheral edema 9. Chest pain 10. Bilateral pneumonia 11. Hypothermia Patient condition Improving, overall patient is vastly improved from earlier in the week when I assumed his care. He has diuresed well, his Pseudomonas UTI has been treated and his echocardiogram shows a good ejection fraction, and normal wall motion and his overall physical exam is essentially unchanged. We will address his hematuria with his regular urologist tomorrow. I think he would be safe to transfer to an extended care facility in the next 48-72 hours but this may not be possible given his 's significant anxiety/disagreement with my assessment his care. We will have our risk management folks talk to her, I think Juan Antonio would be indicated given his statements that he feels that he is "a burden and is about to " recorded by the nurses last night. I also think Roxanol would be reasonable to try during the day for shortness of air and air hunger symptoms. Otherwise continue current cardiac medications. This inpt stay is expected to cross 2 MNs from start of care Yes Antibiotic Stewardship (2) Infxn that will respond? Yes Right drug,dose,and route? Yes More targeted antbx? No at [phone]
--- NOTE | 2017-01-04 14:38 | RADIOLOGY REPORT PS360 ---
CHEST-PORTABLE HISTORY: CHEST PAIN ORDERING PHYSICIAN: Zan Roman MD PATIENT AGE: 76 years COMPARISON: 12/30/2016 FINDINGS: There is cardiomegaly with prominent mediastinum. Pulmonary venous congestion is noted consistent with CHF. Airspace disease is noted in both mid and lower lung zones may be due to pneumonia or edema slightly improved on the right and unchanged on the left. Small bilateral effusions noted. IMPRESSION: CHF with bilateral airspace disease and effusions. Alveolar disease may be due to pneumonia which is shown some improvement on the right
--- NOTE | 2017-01-04 15:48 | ACUTE CARE PROGRESS NOTE (QUA) ---
Progress Notes Subjective Date 01/04/17 Time 1400 Note Progress note Patient has no significant improvement in last 24 hours, has episodic shortness of breath and some LEFT arm discomfort. Describes no orthopnea or PND. Physical exam Pulse 68 bpm, blood pressure 160/90. Positive JVP Decreased breath sounds bilaterally with coarse rales at the bases. Cardiac exam S1-S2, 1/6 systolic murmur in the aortic area, S4 present. Abdomen Soft nondistended, bowel sounds present. Extremity 2+ pitting edema Medications cardiac only 1. Lasix 40 mg IV as needed 2. CorEG 3.125 mg by mouth twice daily 3. Nitropaste 1 inch every 6 hours Impression/problem list 1. Congestive heart failure on the basis of hypertension and hypertensive heart disease with evidence of fluid overload. 2. Abnormal cardiac troponin likely non-ST elevation myocardial infarction possible underlying ischemic heart disease. 3. Hematuria and possible urinary tract infection. 4. Pneumonia Recommend 1. Continue IV Lasix to keep in negative fluid balance. 2. Continue beta naseem 3. Repeat chest x-ray. 4. Will treat conservatively. Assessment/Plan Problem List 1. Hematuria 2. Neurogenic bladder 3. UTI (urinary tract infection) Qualifiers: Urinary tract infection type: catheter-associated UTI Indwelling urinary catheter type: indwelling urethral catheter Encounter type: initial encounter Qualified Code: T83.511A - Infection and inflammatory reaction due to indwelling urethral catheter, initial encounter 4. Obstructed Hernández catheter 5. Leukocytosis Qualifiers: Leukocytosis type: unspecified Qualified Code: D72.829 - Elevated white blood cell count, unspecified 6. Quadriplegia following spinal cord injury 7. CVA (cerebral vascular accident) 8. Peripheral edema 9. Chest pain 10. Bilateral pneumonia 11. Hypothermia This inpt stay is expected to cross 2 MNs from start of care Yes Antibiotic Stewardship (2) Infxn that will respond? Yes Right drug,dose,and route? Yes More targeted antbx? No at [phone]
[2017-01-04 20:26] LABS: LYMPH # 0.9 K/mm3 (0.7-4.5); LYMPH % 7.7 % (10-50)
[2017-01-04 20:35] LABS: HEMOGLOBIN 12.2 g/dL (14.1-18.0)
[2017-01-05] VITALS (7 sets, daily range): BP systolic 89–142; BP diastolic 47–88
[2017-01-05 05:18] LABS: NEUTROPHILS 87 % (42-76)
[2017-01-05 07:03] LABS: LYMPH # 0.6 K/mm3 (0.7-4.5); LYMPH % 6.7 % (10-50)
[2017-01-05 07:13] LABS: HEMOGLOBIN 10.8 g/dL (14.1-18.0)
--- NOTE | 2017-01-05 09:04 | ACUTE CARE PROGRESS NOTE (QUA) ---
Progress Notes Subjective Date 01/05/17 Time 0900 Note last night patient had episodes of minimal rectal bleeding. CBC and other labs were done showing improved hemoglobin, normal coagulation studies. Lovenox was held. Potassium was held this morning and calcium gluconate has been ordered for hyperkalemia. Patient is in bed, arousable easily, states that he "doesn't feel too badly." Lungs have rhonchi in both luz but at baseline. Heart rate regular. Abdomen soft, edema is vastly improved in hands and feet. No change in abnormal neurologic exam. Objective Findings Last VS-Temp:96.1 B/P:142/69 Pulse:69 Resp:18 SaO2:90 OXYGEN Last weight lbs:238 oz:6 K.125 Method:Bed Scales Assessment/Plan Problem List 1. Hematuria 2. Neurogenic bladder 3. UTI (urinary tract infection) Qualifiers: Urinary tract infection type: catheter-associated UTI Indwelling urinary catheter type: indwelling urethral catheter Encounter type: initial encounter Qualified Code: T83.511A - Infection and inflammatory reaction due to indwelling urethral catheter, initial encounter 4. Obstructed Hernández catheter 5. Leukocytosis Qualifiers: Leukocytosis type: unspecified Qualified Code: D72.829 - Elevated white blood cell count, unspecified 6. Quadriplegia following spinal cord injury 7. CVA (cerebral vascular accident) 8. Peripheral edema 9. Chest pain 10. Bilateral pneumonia 11. Hypothermia Patient condition Improving, Stable, Urology evaluation today for hematuria and Hernández catheter situation. Gen. surgery consultation for rectal bleeding although I feel this is fairly minimal and probably from hemorrhoidal issues in the face of Lovenox therapy. This has been held. Cardiology evaluation continues and patient seems to have stabilized from this perspective. Our difficult problem will be transitioned to a skilled care facility given his 's current emotional feelings and expectations about his ongoing care. This inpt stay is expected to cross 2 MNs from start of care Yes Antibiotic Stewardship (2) Infxn that will respond? Yes Right drug,dose,and route? Yes More targeted antbx? No at [phone]
--- NOTE | 2017-01-05 12:11 | CONSULT NOTE ---
Standard Demographics Patient Demo Date of Consultation: 01/05/17 Referring Provider: Zan Roman MD Reason for Consultation: BRBPR PRIMARY DIAGNOSIS: UTI Allergies: Coded Allergies: bee venom protein (honey bee) (Intermediate, SWELLING 01/03/17) baclofen (01/03/17) carbamazepine (01/03/17) ciprofloxacin (GI UPSET 01/03/17) nitrofurantoin (From MACROBID) (01/03/17) oxybutynin (01/03/17) prazosin (01/03/17) Uncoded Allergies: BEES WAX (SWELLING 08/05/14) History of Present Illness Chief Complaint: Bright red blood per rectum History of Present Illness: This is a 76-year-old gentleman who is admitted to the service of Dr. Roman for evaluation and management of hematuria and urinary tract infection. He developed an episode of bright red blood per rectum yesterday and the surgical service was consulted. His Lovenox has been held and he does not appear to have ongoing/ severe blood loss. Past Medical History Denies: congestive heart failure. Surgical History Previous Surgery?Y NECK FUSION IN 1977 [employer] NO SURGERY Allergies Coded Allergies: bee venom protein (honey bee) (Intermediate, SWELLING 01/03/17) baclofen (01/03/17) carbamazepine (01/03/17) ciprofloxacin (GI UPSET 01/03/17) nitrofurantoin (From MACROBID) (01/03/17) oxybutynin (01/03/17) prazosin (01/03/17) Uncoded Allergies: BEES WAX (SWELLING 08/05/14) Medications: Active Scripts Aspirin (Adult Low Dose Aspirin EC) 81 MG PO DAILY #30 TAB Prov: 12/13/16 Reported Medications Montelukast Sodium (Singulair) 10 MG PO QAM Diazepam (Valium 10MG) 10 MG PO QIDP Furosemide (Furosemide) 20 MG PO DAILY PRN DIURETIC #30 TAB Bisacodyl (Dulcolax 10MG Supp) 10 MG [place] Q48H CRANBERRY CONC/C/BACILL COAG (Cranberry Tablet) 1 TAB PO BID NEOMYCIN LUCIA/POLYMYX B SULF (Neomy-Polymyxin B 40 MG/Ml Amp) 1 ML IL Additional medical history: Quadriplegia secondary to spinal cord injury Family history Postive for: HTN. Smoking Hx Tobacco: No Smoker: Former Smoker Type: Cigarettes Packs/day: N/A Are you/the child exposed to second-hand smoke: No Alcohol Alcohol: No Hx of Drug Use Drug Use? No Review of Systems Constitutional Positive for: chills. Skin No: bruising. Immune/allergy No: anaphalaxis. Eyes No: discharge. ENT No: nose bleed. Respiratory No: pneumonia. GI Positive for: hematochezia. No: hematemeis, melena. (male) Positive for: hematuria. Heme No: petechia. Endocrine No: polydipsia. Neurological Positive for: bladder dysfunction. Psychiatric No: anxious. Physical Exam VS/I&O Vital Signs Date Time Temp Pulse Resp B/P Pulse O2 O2 Flow FiO2 Ox Delivery Rate 01/05 1120 2 01/05 0902 20 01/05 0840 2 01/05 0840 96.1 69 18 142/69 90 2 01/05 0839 18 01/05 0737 96.1 69 16 142/69 90 OXYGEN 01/05 0633 2 01/05 0620 2 01/05 0509 95.9 64 16 140/87 91 OXYGEN 2 01/05 0505 2 01/05 0445 2 01/05 0300 2 01/05 0210 2 01/05 0100 2 01/04 2347 2 01/04 2347 95.9 71 16 141/75 93 OXYGEN 2 01/04 2232 2 01/04 2152 2 01/04 2129 93.9 87 16 183/97 96 2 01/04 2109 16 01/04 2100 2 01/04 1940 2 01/04 1917 2 01/04 1917 93.9 87 16 183/97 96 OXYGEN 2 01/04 1843 2 01/04 1748 2 01/04 1645 95.1 56 16 160/94 96 OXYGEN 2 01/04 1600 2 01/04 1557 16 01/04 1550 2 01/04 1400 2 01/04 1315 2 01/04 1250 16 01/04 1240 95.6 62 20 130/80 96 OXYGEN 2 01/04 1236 2 I&O 01/05 0700 Intake Total 180 Output Total 500 Balance -320 Intake, Oral 180 Output, Stool Output, Urine 500 Exam General appearance no acute distress Respiratory no distress Cardiovascular regular rate and rhythm Abdomen soft ((see below)) Findings/Data Perianal evaluation reveals some hemorrhoidal cushions and some clotted blood. No sign of severe/ongoing blood loss. Plan Plan: Impression: BRBPR - possibly secondary to hemorrhoidal disease with exacerbation due to the necessity to take rectal temperatures...in addition to the fact that he has been on Lovenox. No sign of ongoing hemorrhage. Plan: No need for acute surgical intervention. Close continued observation. Avoid taking temperature rectally if possible. Topical hemorrhoid therapy. at 1972
--- NOTE | 2017-01-05 13:54 | CONSULT NOTE-UROLOGY ---
Urology Follow Up Visit Date of Visit: 01/05/17 HPI/Chief Complaint: Referring provider:Dorian Gutierrez 76/M Patient presenting problem: Patient feels initial visit problem has Person attending patient for this visit: Patient is a 76-year-old white male with history of quadriplegia and neurogenic bladder. He was admitted to [facility] on December 27. My partner Dr. Rodriguez saw the patient on the and irrigated his bladder for the hematuria. There is no evidence of any clots or suspected retention at that time. His catheter was changed in the emergency room. He does have a chronic indwelling Hernández due to his neurogenic bladder and has had recurrent urinary tract infections. It has been managed with antibiotic irrigation daily by his . Culture did grow Pseudomonas which has been treated intravenously while here in the hospital. His urine continues to be blood tinged without clots. He is making adequate amounts of urine. His hospital course is notable at this time for pneumonia and possible coronary angina. Past Medical History: Arthritis? N Diabetes? N Hyperlipedemia? Y Hypertension? N Heart Problems? MS? N SOA? Asthma? N Lung Disease? COPD? N TB? N Anemia? N Bleeding Disorder? Cancer? N Radiation Tx? Hoarsness? Thyroid Problems? N Ulcers? N Kidney Disease? Y Liver Disease? Glaucoma? Seizures? N CVA? N Immune Disease? HIV? N Trouble w/anesthesia? Abn PSA? Prostate Biopsy? Sexual Dysfunction? Abn Periods? Female Hormone Problems? Uterus/Ovary Problems? ? : Para: Control? Type of BC: Surgical & Social History: Previous Surgery?Y NECK FUSION IN 1977 [employer] NO SURGERY Tobacco Use:N Type:Cigarettes Packs/day:N/A If No, have you ever used and quit how long ago? Alcohol Use: Marital Status: Occupation: Family History: Anemia? Arthritis? Asthma? TB?N Cancer?Y Bleeding Troubles? Hyperlipidemia?Y Diabetes?Y COPD? Glaucoma? MS? Heart Problems? HIV? Hypertension?Y Hoarsness? Immune Disease? Kidney Disease? Liver Disease? Lung Disease? Radiation Tx? Seizures? Shortness of Breath? Ulcers? CVA? Thyroid Problems? Trouble w/Anes? Any men in family ever diagnosed with prostate cancer?N Relationship of this person: Allergies Coded Allergies: bee venom protein (honey bee) (Intermediate, SWELLING 01/03/17) baclofen (01/03/17) carbamazepine (01/03/17) ciprofloxacin (GI UPSET 01/03/17) nitrofurantoin (From MACROBID) (01/03/17) oxybutynin (01/03/17) prazosin (01/03/17) Uncoded Allergies: BEES WAX (SWELLING 08/05/14) Current Home Medications Active Scripts Aspirin (Adult Low Dose Aspirin EC) 81 MG PO DAILY #30 TAB Prov: 12/13/16 Reported Medications Montelukast Sodium (Singulair) 10 MG PO QAM Diazepam (Valium 10MG) 10 MG PO QIDP Furosemide (Furosemide) 20 MG PO DAILY PRN DIURETIC #30 TAB Bisacodyl (Dulcolax 10MG Supp) 10 MG [place] Q48H CRANBERRY CONC/C/BACILL COAG (Cranberry Tablet) 1 TAB PO BID NEOMYCIN LUCIA/POLYMYX B SULF (Neomy-Polymyxin B 40 MG/Ml Amp) 1 ML IL Vital Signs/Wt/Labs Weight -LB:238 OZ:6 K.125 Method:Bed Scales Height -FT:5 IN:6 CM:167.64 BMI:37.7 Vital Signs Date Time Temp Pulse Resp B/P Pulse O2 O2 Flow FiO2 Ox Delivery Rate 01/05 1335 2 01/05 1332 18 01/05 1141 95.9 65 16 89/47 90 OXYGEN 01/05 1120 2 01/05 0902 20 01/05 0840 2 01/05 0840 96.1 69 18 142/69 90 2 01/05 0839 18 01/05 0737 96.1 69 16 142/69 90 OXYGEN 01/05 0633 2 01/05 0620 2 01/05 0509 95.9 64 16 140/87 91 OXYGEN 2 01/05 0505 2 01/05 0445 2 01/05 0300 2 01/05 0210 2 01/05 0100 2 01/04 2347 2 01/04 2347 95.9 71 16 141/75 93 OXYGEN 2 01/04 2232 2 01/04 2152 2 01/04 2129 93.9 87 16 183/97 96 2 01/04 2109 16 01/04 2100 2 01/04 1940 2 01/04 191 2 04/12 1917 93.9 87 16 183/97 96 OXYGEN 2 01/04 1843 2 01/04 1748 2 01/04 1645 95.1 56 16 160/94 96 OXYGEN 2 01/04 1600 2 01/04 1557 16 01/04 1550 2 01/04 1400 2 Color: Appearance Glucose: Ketone: Bilirubin: Sp.Oakley: pH: Protein: Urobilinogen: Blood: Nitrite: Leukocytes: Urine collection method? Residual (ml): Laboratory Tests 01/05/17 0600: Sodium 139, Potassium 6.3 *H, Chloride 102, Carbon Dioxide 37 H, BUN 44 H, Creatinine 1.3, Estimated Creat Clear 76, Estimated GFR (MDRD) 54, Glucose 78, Calcium 8.8, WBC 8.8, RBC 4.04 L, Hgb 10.8 L, Hct 35.7 L, MCV 88.5, RDW 16.0, Plt Count 133 L, MPV 6.7 L, Gran % 88.0 H, Gran # 7.6, Lymphocytes % 6.7 L, Monocytes % 4.4, Eosinophils % 0.7, Basophils % 0.1, Lymphocytes # 0.6 L, Monocytes # 0.4, Eosinophils # 0.1, Basophils # 0.0, PUBS MCHC 30.4 L, MCH 26.9 L 01/04/17 2020: Sodium 138, Potassium 5.9 H, Chloride 99, Carbon Dioxide 37 H, BUN 39 H, Creatinine 1.1, Estimated Creat Clear 90, Estimated GFR (MDRD) 65, Glucose 96, Calcium 9.2, PT 11.5, INR 1.07, WBC 11.6 H, RBC 4.53 L, Hgb 12.2 L, Hct 39.7 L, MCV 87.7, RDW 16.2, Plt Count 175, MPV 7.1 L, Gran % 86.2 H, Gran # 10.0 H , Total Counted 100, Lymphocytes % 7.7 L, Monocytes % 3.7, Eosinophils % 2.3, Basophils % 0.1, Neutrophils 87 H, Lymphocytes (Manual) 8 L, Lymphocytes # 0.9 , Monocytes (Manual) 3, Monocytes # 0.4, Eosinophils # 0.3, Eosinophils # ( Manual) 2, Basophils # 0.0, Platelet Estimate NORMAL, Hypochromasia 1+, Anisocytosis 1+, PUBS MCHC 30.3 L, MCH 26.6 L 01/04/17 0600: Sodium 139, Potassium 5.1, Chloride 101, Carbon Dioxide 38 H, BUN 38 H, Creatinine 0.8, Estimated Creat Clear 124, Estimated GFR (MDRD) 94, Glucose 87, Calcium 8.7 01/04/17 0335: Creatine Kinase 46, CK-MB (CK-2) Rel Index 7.4 H, CK and CKMB Interp 3.4, Troponin I 0.05 01/03/17 0600: Sodium 137, Potassium 5.0, Chloride 100, Carbon Dioxide 35 H, BUN 34 H, Creatinine 0.8, Estimated Creat Clear 124, Estimated GFR (MDRD) 94, Glucose 96, Calcium 9.1, WBC 10.6, RBC 4.58 L, Hgb 10.4 L, Hct 39.5 L, MCV 86.3, RDW 16.4 , Plt Count 167, MPV 6.8 L, Gran % 75.2, Gran # 8.0, Lymphocytes % 14.1, Monocytes % 7.7, Eosinophils % 2.9, Basophils % 0.1, Lymphocytes # 1.5, Monocytes # 0.8, Eosinophils # 0.3, Basophils # 0.0, PUBS MCHC 22.1 L, MCH 19.1 L 01/03/17 0245: Creatine Kinase 20 L, CK-MB (CK-2) Rel Index 15.5 *H, CK and CKMB Interp 3.1, Troponin I 0.06 Objective: Obese white male and distress Abdomen soft Increased respiratory effort Not oriented to place Impression/Plan: Gross hematuria in a 76-year-old white male with recent pseudomonas infection. Discussed with the that the hematuria is minor at this point his hemoglobin is stable. His respiratory and cardiac problems are higher priority at this time. The patient is making adequate amounts of urine at this time there is no clotting present. Discussed continuing to monitor the situation as he is not a candidate for operative management. If the bleeding worsens certainly placement of a three-way Hernández catheter with continuous bladder irrigation is recommended. at 1353
--- NOTE | 2017-01-05 15:15 | ACUTE CARE PROGRESS NOTE (QUA) ---
Progress Notes Subjective Date 01/05/17 Time 1425 Note Cardiology progress note Patient has less shortness of breath and chest discomfort last night, lower extremity edema has improved, however there is worsening of the renal function and hyperkalemia. Patient has developed prerenal azotemia. Currently he is lying comfortably with no visible orthopnea, he describes no chest pain. Medications : reviewed Physical exam: Pulse 82 bpm, blood pressure 149/60 HEENT: JVP difficult to assess Lungs: bibasilar coarse rales, occasional rhonchi Cardiovascular exam: S1-S2, prominent S4, no S3. Abdomen: soft bowel sounds present Extremities: 1+ pitting edema. Labs: reviewed cxr bilateral pneumonia some improvement. Impression 1. Congestive heart failure likely on the basis of diastolic dysfunction and possible underlying ischemic heart disease 2. Bilateral pneumonia. 3. Hyperkalemia and prerenal azotemia secondary to diuretics and potassium supplements. 4. Lower extremity edema improving, some edema is likely secondary to third spacing, clinically intravascular depletion. Recommend 1. Discontinue topical nitrates, start isosorbide mononitrate 30 mg by mouth daily. 2. Discontinue Lasix and potassium supplement. 3. Continue conservative management for cardiac issues. Assessment/Plan Problem List 1. Hematuria 2. Neurogenic bladder 3. UTI (urinary tract infection) Qualifiers: Urinary tract infection type: catheter-associated UTI Indwelling urinary catheter type: indwelling urethral catheter Encounter type: initial encounter Qualified Code: T83.511A - Infection and inflammatory reaction due to indwelling urethral catheter, initial encounter 4. Obstructed Hernández catheter 5. Leukocytosis Qualifiers: Leukocytosis type: unspecified Qualified Code: D72.829 - Elevated white blood cell count, unspecified 6. Quadriplegia following spinal cord injury 7. CVA (cerebral vascular accident) 8. Peripheral edema 9. Chest pain 10. Bilateral pneumonia 11. Hypothermia This inpt stay is expected to cross 2 MNs from start of care Yes Antibiotic Stewardship (2) Infxn that will respond? Yes Right drug,dose,and route? Yes More targeted antbx? No at [id number]
[2017-01-06 00:17] VITALS: BP 83/37
[2017-01-06 04:28] VITALS: BP 86/51
--- NOTE | 2017-01-06 07:13 | SURGEON PROGRESS NOTE ---
Subjective data Subjective data: Resting. The family states that the "goal is just to be comfortable". Objective data Vitals,I&O,and Labs: Vital signs, intake and output,and available lab data for the last 24 hours is as noted below. Vital Signs Date Time Temp Pulse Resp B/P Pulse O2 O2 Flow FiO2 Ox Delivery Rate 01/06 0630 2 01/06 0533 2 01/06 0529 2 01/06 0428 96.3 60 24 86/51 96 OXYGEN 2 01/06 0403 2 01/06 0341 2 01/06 0135 2 01/06 0125 2 01/06 0035 20 01/06 0017 96.1 58 20 83/37 96 OXYGEN 2 01/06 0015 2 01/05 2326 2 01/05 2316 2 01/05 2316 80 ROOM AIR 01/05 2316 95 OXYGEN 2 01/05 2143 2 01/05 2101 2 01/05 2030 95.8 82 20 104/59 96 2 01/05 2025 20 01/05 1928 2 01/05 1922 2 01/05 1922 95.8 82 20 104/59 96 OXYGEN 2 01/05 1808 2 01/05 1745 20 01/05 1715 2 01/05 1649 2 01/05 1649 95.9 77 20 138/88 93 OXYGEN 2 01/05 1554 2 01/05 1335 2 01/05 1332 18 01/05 1141 95.9 65 16 89/47 90 OXYGEN 01/05 1120 2 01/05 0902 20 01/05 0840 2 01/05 0840 96.1 69 18 142/69 90 2 01/05 0839 18 01/05 0737 96.1 69 16 142/69 90 OXYGEN 01/05 1500 01/05 2300 01/06 0700 Intake Total 420 270 Output Total Balance 420 270 Intake, IV 270 Intake, Oral 420 Output, Stool Laboratory Tests Test Result Date Time Chemistry Sodium (mmoL/L) 139 01/05 0600 Potassium (mmoL/L) 6.3 01/05 0600 Chloride (mmoL/L) 102 01/05 0600 Carbon Dioxide (mmoL/L) 37 01/05 0600 BUN (mg/dL) 44 01/05 600 Creatinine (mg/dL) 1.3 01/05 06 Estimated Creat Clear (ML/MIN) 76 01/05 600 Estimated GFR (MDRD) (ML/MIN) 54 01/05 600 Glucose (mg/dL) 78 01/05 600 Lactic Acid (mmol/L) 1.1 12/28 719 Calcium (mg/dL) 8.8 01/05 600 Total Bilirubin (mg/dL) 0.9 12/28 719 AST (U/L) 14 12/28 719 ALT (U/L) 42 12/28 719 Alkaline Phosphatase (U/L) 79 12/28 719 Creatine Kinase (U/L) 46 01/04 335 CK-MB (CK-2) Rel Index (U/L) 7.4 01/04 335 CK and CKMB Interp (ng/mL) 3.4 01/04 335 Troponin I (ng/mL) 0.05 01/04 335 B-Natriuretic Peptide (pg/mL) 323 01/01 600 Total Protein (gm/dL) 6.1 12/28 719 Albumin (gm/dL) 3.0 12/28 719 Globulin (gm/dL) 3.1 12/28 719 Albumin/Globulin Ratio 1.0 12/28 719 TSH (uIU/ml) 1.11 12/28 599 Coagulation PT (SECONDS) 11.5 01/05 2020 INR 1.07 01/05 2020 D-Dimer (ng/mL) 852 12/28 599 Hematology WBC (K/MM3) 8.8 01/05 600 RBC (M/mm3) 4.04 01/05 600 Hgb (g/dL) 10.8 01/05 600 Hct (%) 35.7 01/05 600 MCV (fl) 88.5 01/05 600 RDW (%) 16.0 01/05 600 Plt Count (K/mm3) 133 01/05 600 MPV (fl) 6.7 01/05 600 Gran % (%) 88.0 01/05 600 Gran # (K/mm3) 7.6 01/05 600 Total Counted (#CELLS) 100 01/05 2020 Lymphocytes % (%) 6.7 01/05 600 Monocytes % (%) 4.4 01/05 600 Eosinophils % (%) 0.7 01/05 600 Basophils % (%) 0.1 01/05 600 Neutrophils (%) 87 01/05 2020 Band Neutrophils (%) 2 12/30 629 Lymphocytes (Manual) (%) 8 01/05 2020 Lymphocytes # (K/mm3) 0.6 01/05 600 Monocytes (Manual) (%) 3 01/05 2020 Monocytes # (K/mm3) 0.4 01/05 600 Eosinophils # (K/mm3) 0.1 01/05 600 Eosinophils # (Manual) (%) 2 01/05 2020 Basophils # (K/MM3) 0.0 01/05 600 Platelet Estimate NORMAL 01/05 2020 Hypochromasia 1+ 01/05 2020 Anisocytosis 1+ 01/05 2020 PUBS MCHC (g/dl) 30.4 01/05 600 Immunology MCH (pg) 26.9 01/05 600 Urines Urine Color [place] 12/27 710 Urine Appearance CLOUDY 12/27 710 Urine pH 6.5 12/27 710 Ur Specific [place] 1.010 12/27 710 Urine Protein (mg/dL) 2+ 12/27 710 Urine Ketones (mg/dL) NEGATIVE 12/27 710 Urine Blood 3+ 12/27 710 Urine Nitrate POSITIVE 12/27 710 Urine Bilirubin NEGATIVE 12/27 710 Urine Urobilinogen (E.U./dL) 1.0 12/27 710 Ur Leukocyte Esterase 3+ 12/27 710 Urine RBC (rbc/hpf) TNTC 12/27 710 Urine WBC (wbc/hpf) TNTC 12/27 710 Ur Squamous Epith Cells (#/hpf) 3-5 12/27 710 Urine Renal Cells (#/HPF) 3-5 12/27 710 Urine Bacteria 4+ 12/27 710 Urine Mucus 1+ 12/27 710 Urine Glucose NEGATIVE 12/27 710 Assessment findings Assessment Exam General appearance: no acute distress Cardiovascular: regular rate & rhythm Respiratory: no respiratory distress Patient plan Diagnoses: Blood per rectum Hematuria Overall functional decline Plan: care as per primary service Additional data: The patient's family state that they no longer wished to pursue "invasive treatments". They understand that he is likely nearing the end of life and they just "want him to be comfortable". Antibiotic Stewardship (2) Infxn that will respond? Yes Right drug,dose,and route? Yes More targeted antbx? No at [id number]
--- NOTE | 2017-01-06 07:52 | ACUTE CARE PROGRESS NOTE (QUA) ---
Progress Notes Subjective Date 01/06/17 Time 0750 Note Overnight patient has had some significant hemodynamic changes over the past 48 hours with lowering systolic blood pressure and minimal communication. Urine output has also dropped. Consultation notes from cardiology, surgery and urology appreciated. His this morning is accepting of the overall chronic illness condition. He is minimally responsive to deep tactile stimuli, appears comfortable, lungs have poor air movement, capillary refill is worsening. Objective Findings Last VS-Temp:96.3 B/P:86/51 Pulse:60 Resp:24 SaO2:96 OXYGEN Last weight lbs:238 oz:6 K.125 Method:Bed Scales Assessment/Plan Problem List 1. Hematuria 2. Neurogenic bladder 3. UTI (urinary tract infection) Qualifiers: Urinary tract infection type: catheter-associated UTI Indwelling urinary catheter type: indwelling urethral catheter Encounter type: initial encounter Qualified Code: T83.511A - Infection and inflammatory reaction due to indwelling urethral catheter, initial encounter 4. Obstructed Hernández catheter 5. Leukocytosis Qualifiers: Leukocytosis type: unspecified Qualified Code: D72.829 - Elevated white blood cell count, unspecified 6. Quadriplegia following spinal cord injury 7. CVA (cerebral vascular accident) 8. Peripheral edema 9. Chest pain 10. Bilateral pneumonia 11. Hypothermia Patient condition Deteriorating, I believe the patient's cardiopulmonary status is declining. He has the appearance of imminent demise. I think hospice consultation is indicated This inpt stay is expected to cross 2 MNs from start of care Yes Antibiotic Stewardship (2) Infxn that will respond? Yes Right drug,dose,and route? Yes More targeted antbx? No at 0752
[2017-01-06 08:00] VITALS: BP 63/38
[2017-01-06 10:38] VITALS: BP 63/38
[2017-01-06 19:34] VITALS: BP 93/53
[2017-01-06 20:28] VITALS: BP 93/53
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
== END 2017-01-07 05:35 | disposition expired | DRG 698 ==
LOC: ER 06:46 → 2ND 08:25
PROVIDERS: Emergency Medicine; Internal Medicine Adolescent Medicine
DX: T83.511A Infection and inflammatory reaction due to indwelling urethral catheter, initial encounter (principal); G82.50 Quadriplegia, unspecified; I21.4 Non-ST elevation (NSTEMI) myocardial infarction; J18.9 Pneumonia, unspecified organism; N31.9 Neuromuscular dysfunction of bladder, unspecified; S14.105S Unspecified injury at C5 level of cervical spinal cord, sequela; N39.0 Urinary tract infection, site not specified; R31.9 Hematuria, unspecified; V89.2XXS Person injured in unspecified motor-vehicle accident, traffic, sequela; Z86.73 Personal history of transient ischemic attack (TIA), and cerebral infarction without residual deficits; B96.5 Pseudomonas (aeruginosa) (mallei) (pseudomallei) as the cause of diseases classified elsewhere
CPT/HCPCS: J0692; Q9957; Q9967